=== PATIENT | male | born 1960 | race African-American/Black ===

== ENCOUNTER 2024-06-24 14:40 | Emergency (ER) | payer OTHER, SELFPAY ==
[2024-06-24 14:52] VITALS: BP 135/88; PULSE 87; RESP 14; TEMP 36.4; O2SAT 98
--- NOTE | 2024-06-24 14:55 | ED.SKABFB ---
HPI - Skin/Abscess/Foreign Bdy General Chief complaint: Skin/Abscess/Foreign Body Stated complaint: Left Foot Toe Pain Time Seen by Provider: 06/24/24 14:57 Source: patient and RN notes reviewed Mode of arrival: ambulatory Limitations: no limitations History of Present Illness HPI narrative: 63-year-old male presents concern for a callus on his left foot. Reports he has been treating it for several weeks with salicylic acid and trimming it which have been improving. However he missed a week of work because it was painful. Reports he is going back to work and his boss is requiring a work note. He also reports that his boss told him he needed to be tested for COVID. He denies any COVID symptoms. He denies fever, aches, chills, sweats, runny nose, stuffy nose, cough, body aches, headache, nausea, vomiting, diarrhea. MD complaint: other (Callus) Related Data Home Medications Medication Instructions Recorded Confirmed No Home Medications 06/24/24 06/24/24 Allergies Allergy/AdvReac Type Severity Reaction Status Date / Time Penicillins Allergy Unknown Verified 06/24/24 14:57 Review of Systems Review of Systems: CONSTITUTIONAL: Denies malaise, chills, sweats, or fever. EYES: Denies redness, or discharge. ENT: Denies rhinorrhea, congestion, swollen lips, swollen tongue CARDIOVASCULAR: Denies chest pain, palpitations, or edema. RESPIRATORY: Denies cough or dyspnea. GASTROINTESTINAL: Denies abdominal pain, nausea, vomiting SKIN: Reports improving callus on his left foot MUSCULOSKELETAL: Denies joint pain or myalgia. NEUROLOGIC: Denies headache. All systems reviewed & are unremarkable except as noted in HPI and below PMFSH Comments At time of signature, agree with nursing past medical, surgical, social and family history. There is no relevant family history pertinent to the presenting complaint Exam Narrative: GENERAL: Well-appearing, well-nourished, and in no acute distress. HEAD: Normocephalic, atraumatic. EYES: PERRLA, conjunctivae clear, and EOMI. ENT: Mucous membranes moist. NECK: Supple. No lymphadenopathy CHEST: Clear to auscultation. No respiratory distress. HEART: Regular rate and rhythm. SKIN: Warm, dry. Callus noted to the left foot NEURO: Alert and oriented x3. PSYCH: Normal mood and affect Course Course Emergency Course: Patient is aware of diagnosis, understands and agrees to treatment plan. Anticipatory guidance given. Patient agrees to follow-up as directed and is aware of reasons to seek care at the emergency department. Portions of this record may have been created with voice recognition software Level of Care: Express Care Visit Vital Signs Vital signs: Vital Signs Temperature 97.6 F 06/24/24 14:52 Pulse Rate 87 06/24/24 14:52 Respiratory Rate 14 06/24/24 14:52 Blood Pressure 135/88 06/24/24 14:52 Pulse Oximetry 98 06/24/24 14:52 Oxygen Delivery Room Air 06/24/24 14:52 Temperature 97.6 F 06/24/24 14:52 Pulse Rate 87 06/24/24 14:52 Respiratory Rate 14 06/24/24 14:52 Blood Pressure 135/88 06/24/24 14:52 Pulse Oximetry 98 06/24/24 14:52 Oxygen Delivery Room Air 06/24/24 14:52 Reviewed. MDM - Skin/Abscess/Foreign Bdy MDM Narrative Medical decision making narrative: Does not appear at this time to be erythema multiforme, bullous, SJS, TEN; no evidence at this time to suggest RMSF, endocarditis or Lyme disease; patient looks well, nontoxic and is tolerating oral intake; no neurologic signs or symptoms; no headache, photophobia or neck pain; afebrile; appropriate for initial outpatient treatment; discussed the importance of follow-up, patient agrees; question, viral exanthema, contact dermatitis, allergic dermatitis, eczema, urticaria, [ xx ]. No soft palate or uvula edema, no tongue, lip edema or other mucosal involvement, no respiratory compromise, no stridor, no wheezing, no wheezing, no history of syncope, no hypotension, no nausea,
== END 2024-06-24 15:15 | disposition home or self-care (01) ==
PROVIDERS: Emergency Provider Nurse Practitioner
DX: L84 Corns and callosities (principal)
CPT/HCPCS: 99202; G0463